=== PATIENT | female | born 1955 | race Caucasian/White ===

== ENCOUNTER 2017-04-02 21:27 | Inpatient (IN) | payer OTHER ==
[~2017-04-02] VITALS: Ht 172.7 cm; Wt 192.8 kg
[~2017-04-02 21:27] MED LIST: ASPIRIN325 PO; DITROPAN XL10 MG PO; GLUCOPHAGE500 MG PO; HYDROCHLOROTHIA25 M2; LISINOPRIL-HCT1 EACH PO; LISINOPRIL5 MG; METFORMIN HCL1000 M1; OXYBUTYNIN 5 MG5 M1; VITAMIN D1000 UNI1 PO; ZOLOFT100 MG PO; ZOLOFT25 MG
[2017-04-02 21:28] VITALS: BP 147/90
[2017-04-02 23:38] LABS: BASOPHILS 0.9 % (0.0-2.0); EOSINOPHILS 4.8 % (0.0-3.0); HEMATOCRIT 34.8 % (37.0-47.0); LYMPHOCYTES 23.3 % (24.0-44.0); MANUAL DIFF NO; MCH 30.1 pg (26.0-34.0); MCHC 34.6 g/dL (28.0-37.0); MONOCYTES 7.1 % (1.0-8.0); PLATELET COUNT 253 thou/uL (150-400); POLYS 63.9 % (36.0-66.0); RDW 13.2 % (10.5-14.5); WBC 6.3 thou/uL (4.0-11.0)
[2017-04-02 23:45] LABS: CALCIUM 9.8 mg/dL (8.5-10.1); CREATININE 0.9 mg/dL (0.6-1.0); POTASSIUM 3.5 mmol/L (3.5-5.1)
[2017-04-02 23:51] LABS: ALBUMIN 3.2 g/dL (3.4-5.0)
[2017-04-03 01:24] VITALS: BP 149/70
[2017-04-03 01:28] VITALS: BP 145/70
[2017-04-03 07:48] VITALS: BP 133/68
[2017-04-03 16:15] VITALS: BP 132/70
[2017-04-03 20:06] VITALS: BP 122/69
[2017-04-03 23:30] VITALS: BP 131/64
[2017-04-04 02:06] LABS: ABSOLUTE NEUTROPHILS 2.5 thou/uL (1.4-8.2); BASOPHILS 1.1 % (0.0-2.0); HEMATOCRIT 33.1 % (37.0-47.0); HEMOGLOBIN 11.1 gm/dL (12.0-15.0); LYMPHOCYTES 35.6 % (24.0-44.0); MCH 29.8 pg (26.0-34.0); MCHC 33.6 g/dL (28.0-37.0); MCV 88.7 fL (80.0-100.0); MONOCYTES 6.8 % (1.0-8.0); PLATELET COUNT 234 thou/uL (150-400); POLYS 49.5 % (36.0-66.0); RBC 3.73 mil/uL (4.20-5.00); RDW 13.1 % (10.5-14.5); WBC 5.2 thou/uL (4.0-11.0)
[2017-04-04 02:08] LABS: MANUAL DIFF NO
[2017-04-04 02:14] LABS: CALCIUM 9.2 mg/dL (8.5-10.1); CREATININE 0.8 mg/dL (0.6-1.0); POTASSIUM 3.7 mmol/L (3.5-5.1)
[2017-04-04 04:42] VITALS: BP 150/63
[2017-04-04 07:15] VITALS: BP 159/67
[2017-04-04 16:00] VITALS: BP 126/63
[2017-04-04 19:51] VITALS: BP 120/58
[2017-04-05 03:55] VITALS: BP 150/63
[2017-04-05 06:34] LABS: HEMATOCRIT 33.3 % (37.0-47.0); HEMOGLOBIN 11.2 gm/dL (12.0-15.0); MCH 29.5 pg (26.0-34.0); MCHC 33.8 g/dL (28.0-37.0); MCV 87.3 fL (80.0-100.0); RBC 3.81 mil/uL (4.20-5.00); RDW 13.5 % (10.5-14.5); WBC 4.8 thou/uL (4.0-11.0)
[2017-04-05 06:48] LABS: CALCIUM 9.7 mg/dL (8.5-10.1); CREATININE 0.9 mg/dL (0.6-1.0); POTASSIUM 3.7 mmol/L (3.5-5.1)
[2017-04-05 08:35] VITALS: BP 154/68
[2017-04-05 16:45] VITALS: BP 145/70
[2017-04-05 19:43] VITALS: BP 124/56
[2017-04-05 19:45] VITALS: BP 124/56
[2017-04-06 05:09] VITALS: BP 130/54
[2017-04-06 09:00] VITALS: BP 153/72
[2017-04-06] MEDS ORDERED: KEFLEX500 MG PO (15:23)
[2017-04-06 15:43] VITALS: BP 153/72
== END 2017-04-06 16:00 | disposition home or self-care (01) | DRG 603 ==
LOC: ER 21:27 → 4S 04-03 00:18 → EROBS 04-03 00:18 → 4S 04-03 01:29 → ENTRNSPT 04-06 15:58 → 4S 04-06 16:00 → EDTRNSPTSTS 04-06 16:01
PROVIDERS: Family Medicine; Hospitalist; Nurse Practitioner Family; Physician Assistant
DX: L03.115 Cellulitis of right lower limb (principal); Z68.44 Body mass index [BMI] 60.0-69.9, adult; I10 Essential (primary) hypertension; E11.9 Type 2 diabetes mellitus without complications; G47.33 Obstructive sleep apnea (adult) (pediatric); E66.9 Obesity, unspecified; N32.81 Overactive bladder; Z88.0 Allergy status to penicillin; Z88.8 Allergy status to other drugs, medicaments and biological substances; Z28.21 Immunization not carried out because of patient refusal
CPT/HCPCS: 10100

== ENCOUNTER → 2019-03-23 | Outpatient (CLI) | payer OTHER ==
[~2019-03-23] VITALS: Ht 177.8 cm; Wt 197.3 kg
[~2019-03-23] MED LIST changes: +DITROPAN XL10 M1 PO; -DITROPAN XL10 MG PO; +KEFLEX500 MG PO; +SERTRALINE HCL50 MG PO
--- NOTE | 2019-03-28 13:46 | PATH ---
[facility] [place] [address] PATHOLOGY RPT PROCEDURE Name: JESSICA HENDERSON [id number]: 03/23/19 Date of : 59 Discharge: Report #: [id number] Path Case #: [id number] [facility] Accession Number: [id number] . 01 Material submitted: . PART A: colon - RANDOM COLON BX PART B: cecum - POLYP AT CECUM PART C: colon - POLYP AT DESCENDING COLON. Modifiers: descending . 01 Clinical history: . Screening, diarrhea Colon polyps, hemorrhoids A. Rule out microscopic colitis . 02 Diagnosis: A. "Random colon BX R/O microscopic colitis", biopsy: - Colonic mucosa with mild reactive changes; no evidence of active, lymphocytic or collagenous colitis and no dysplasia seen. . B. "Polyp at cecum", biopsy: - Tubular adenoma; no high-grade dysplasia. . C. "Polyp at descending colon", biopsy: - Hyperplastic polyp. (CLW:cricket; 03/25/2019) QMS 03/25/2019 0951 Local . 02 Electronically signed: . Dedra Ruiz MD, Pathologist NPI- [id number] . 01 Gross description: . A. The specimen is received in formalin, labeled "Brown, Jessica, random colon BX" and consists of multiple fragments of donovan tissue measuring 1.2 x 0.8 x 0.2 cm in aggregate which are entirely submitted in A1. . B. The specimen is received in formalin, labeled "Brown, Jessica, polyp at cecum" and consists of 2 fragments of pink-donovan tissue measuring 0.7 x 0.2 cm and 0.5 x 0.3 cm which are entirely submitted in B1. . C. The specimen is received in formalin, labeled "Brown, Jessica, polyp at descending colon" and consists of 2 fragments of pink-donovan tissue measuring 0.3 x 0.1 cm and 0.6 x 0.3 cm which are entirely submitted in C1. (SDY; 03/24/2019) SYU/SYU 03/24/2019 1130 Local . 02 Pathologist provided ICD-10: [address] [address] PATHOLOGY RPT PROCEDURE Name: JESSICA HENDERSON Room #: REG CLI AleciaTyrel#: [id number] Admission: 03/23/19 Date of : 59 Discharge: Report #: [id number] Path Case #: [id number] D12.0, K63.5, K63.9 . 02 CPT . 904085, [id number], [id number] Specimen Comment: A courtesy copy of this report has been sent to Specimen Comment: [phone], , . Specimen Comment: Report sent to ,DR FELICIANO / DR SCOTT Performed at: [address], [place] [id number] MD Rodo Mcclendon MD Phone: [phone] Performed at: [address] [id number] MD Rosa Perez MD Phone: [phone]
--- NOTE | 2019-03-30 08:09 | P ---
[facility] [place] [address] PROCEDURE REPORT Name: BRYON HENDERSON Room #: REG [facility]#: [id number] Admission: 03/23/19 Attend Phys: Fantasma Castillo Discharge: Date of : 59 Report #: [id number] THIS REPORT FOR: //name// CC: Fantasma Mart DO Debra Rice DATE OF SERVICE: 03/23/2019 PROCEDURE PERFORMED: Colonoscopy with biopsies. HISTORY OF PRESENT ILLNESS: The patient is a 63-year-old female here for a routine screening colonoscopy. She denies any symptoms other than mild intermittent diarrhea. No family history of colon cancer. Last colonoscopy was 10 years ago and negative. DESCRIPTION OF PROCEDURE: The risks and benefits of the procedure were explained to the patient, those risks including but not limited to bleeding, perforation and the risk of sedation. She understood these risks and gave informed consent. Sedation was given using propofol per Anesthesia. Next, a digital rectal exam showed external hemorrhoids, otherwise normal. Next, using a standard Olympus colonoscope, the scope was placed in the patient's anus and advanced under direct vision to the cecum. The overall prep was excellent. In the cecum, there was a 4 mm sessile polyp. This was removed with cold forceps, otherwise normal. Ileocecal valve was normal. The ascending and transverse colon were normal. Random biopsies were obtained to rule out the possibility of microscopic colitis. In the descending colon, another 4 mm sessile polyp noted, also removed with cold forceps. Sigmoid colon was normal. The rectal mucosa was normal. On retroflexion, small internal hemorrhoids were noted. Close examination of the anal canal showed no evidence of an anal fissure, no evidence of bleeding. A medium size external hemorrhoids were noted. The scope was then withdrawn and the procedure terminated. The patient tolerated the procedure well. IMPRESSION: 1. Two small colonic polyps. 2. Internal and external hemorrhoids. 3. Otherwise, normal colonoscopy. RECOMMENDATIONS: 1. Await biopsy results. 2. If polyps are hyperplastic, repeat in 10 years; if adenomatous polyps, repeat in [address] [address] PROCEDURE REPORT Name: BEATRIZBRYON Alecia Room #: REG [facility].#: [id number] Admission: 03/23/19 Attend Phys: Fantasma Castillo Discharge: Date of : 59 Report #: [id number] Thank you for allowing me to participate in her care. <ELECTRONICALLY SIGNED> By: Fantasma Rosario MD 03/30/19 0809 2 0031 Fantasma Rosario MD /nt
== END | disposition home or self-care (01) ==
LOC: GI 03-02 08:29
DX: D12.0 Benign neoplasm of cecum (principal); K63.5 Polyp of colon; K63.9 Disease of intestine, unspecified; K64.8 Other hemorrhoids; K64.4 Residual hemorrhoidal skin tags; I10 Essential (primary) hypertension; M19.90 Unspecified osteoarthritis, unspecified site; F32.9 Major depressive disorder, single episode, unspecified; F41.9 Anxiety disorder, unspecified; G47.30 Sleep apnea, unspecified; Z98.890 Other specified postprocedural states; Z87.891 Personal history of nicotine dependence; Z82.49 Family history of ischemic heart disease and other diseases of the circulatory system; Z79.899 Other long term (current) drug therapy; Z88.0 Allergy status to penicillin; Z88.8 Allergy status to other drugs, medicaments and biological substances
CPT/HCPCS: 62110; 62900